=== PATIENT | female | born 1955 | race Caucasian/White ===

== ENCOUNTER 2020-12-05 11:12 | Inpatient (IN) ==
[2020-12-05] MEDS ORDERED: Ondansetron 4 MG/2 ML VIAL IVP ONE (11:23)
[2020-12-05] MEDS ORDERED: 0.9 % Sodium Chloride 1,000 ML IVC ONE ×2 (11:23→13:22)
[2020-12-05] MEDS ORDERED: Isovue-370 500 ML BOTTLE IVP ONE (11:24)
[2020-12-05] MEDS ORDERED: Morphine Sulfate 2 MG/ML SYRINGE IVP STA (11:35)
[2020-12-05] MEDS ORDERED: Aspirin 81 MG TAB.CHEW PO STA (11:44)
[2020-12-05 12:11] LABS: Hemoglobin 13.6 g/dL (11.5-15.4); Mean Corpuscular Volume 92.3 fL (83.0-100.0); Mean Platelet Volume 12.8 fL (9.4-12.4); Red Cell Distribution Width 13.2 % (11.5-14.5)
[2020-12-05 12:12] LABS: Basophils % 0.2 %; Hematocrit 43.3 % (35.3-44.9); Immature Granulocytes % 2.6 % (0-4); Immature Platelets 14.3 % (1.1-6.1); Lymphocytes # 0.7 K/mcL (0.6-4.6); Lymphocytes % 4.7 %; Mean Corpuscular HGB Conc 31.4 g/dL (31.6-35.5); Monocytes # 0.6 K/mcL (0.0-1.3); Monocytes % 4.2 %; Neutrophils # 12.7 K/mcL (1.6-8.9); Red Blood Count 4.69 M/mcL (3.82-4.97); Segmented Neutrophils % 88.3 %; White Blood Count 14.4 K/mcL (4.3-11.1)
[2020-12-05 12:16] LABS: Amorphous Sediment,Urine Few per hpf (None-Few); Bacteria,Urine Few per hpf (None-Few); Bilirubin,Urine Negative (Negative); Blood,Urine Small (Negative); Clarity,Urine Turbid (Clear); Color,Urine Light-Yellow (Yellow); Glucose,Urine (UA) >=1000 mg/dL (Normal); Ketones,Urine Trace mg/dL (Negative); Leukocyte Esterase,Urine Moderate (Negative); Mucus,Urine Few per lpf (None-Few); Nitrite,Urine Negative (Negative); PH,Urine 5.5 pH Units (5.0-8.0); Protein,Urine 30 mg/dL (Neg-Trace); Specific Gravity,Urine 1.026 (1.010-1.025); Squamous Epithelial Cell,Urine Few per hpf (None-Few); Urobilinogen,Urine Normal (Normal); WBC,Urine TNTC per hpf (0-3)
[2020-12-05] MEDS ORDERED: cefTRIAXone 1,000 MG in Water for inj. (sterile) 10 ML IVP ONE (12:31)
[2020-12-05 12:37] LABS: Platelet Count 96 K/mcL (140-400); Platelet Estimate Slight Decrease (Normal)
[2020-12-05 13:05] LABS: Albumin 3.2 g/dL (3.5-5.7); Bilirubin,Direct 0.7 mg/dL (0.0-0.2); Bilirubin,Indirect 0.5 mg/dL (0.0-1.0); Bilirubin,Total 1.2 mg/dL (0.3-1.0); Calcium 9.1 mg/dL (8.6-10.3); Globulin 3.2 g/dL (2.4-3.5); Potassium 3.8 mEq/L (3.5-5.1); Total Protein 6.4 g/dL (6.4-8.9); Troponin I 0.05 ng/mL (< 0.04)
[2020-12-05 13:25] LABS: VBG HCO3 25 mEq/L (21-27); VBG PCO2 44 mmHg (41-51); VBG PH 7.37 pH Units (7.32-7.42); VBG PO2 82 mmHg (25-50)
[2020-12-05] MEDS ORDERED: MetroNIDAZOLE 500 MG/100 ML 500 MG/100 ML BAG IVPB ONE (14:08)
[2020-12-05] MEDS ORDERED: Aspirin 81 MG TAB.CHEW PO ONE (14:15)
[2020-12-05] MEDS ORDERED: Aspirin 81 MG TAB.CHEW ONE (14:25)
[2020-12-05] MEDS ORDERED: Naloxone 0.4 MG/ML INJ IVP PRN (14:50)
[2020-12-05] MEDS ORDERED: *HR* Dextrose 50 % in Water (Vial) 50 ML VIAL IVP PRN (14:50)
[2020-12-05] MEDS ORDERED: Ondansetron 4 MG/2 ML VIAL IVP PRN (14:50)
[2020-12-05] MEDS ORDERED: D5% in 0.45% NACL w KCl 20 MEQ/1,000 ML MLS IVC PRN (14:50)
[2020-12-05] MEDS ORDERED: D5% in 0.45% NACL 1,000 ML IVC PRN (14:50)
[2020-12-05] MEDS ORDERED: Insulin Regular, Human 100 UNIT/ML IV PRN (14:50)
[2020-12-05] MEDS ORDERED: 0.9 % Sodium Chloride w KCl 20 MEQ/1,000 ML MLS IVC SCH (15:00)
[2020-12-05] MEDS: 0.45 % Sodium Chloride w/KCl 20 MEQ/1,000 ML MLS IVC SCH (17:02)
[2020-12-05] MEDS: *HR* Heparin 5,000 UNIT/ML VIAL SQ SCH (17:18)
[2020-12-05 23:08] LABS: Calcium 8.4 mg/dL (8.6-10.3); Potassium 3.6 mEq/L (3.5-5.1)
[2020-12-06 00:23] LABS: Acinetobacter baumannii by PCR Not Detected (Not Detect); Candida albicans by PCR Not Detected (Not Detect); Candida glabrata by PCR Not Detected (Not Detect); Candida krusei by PCR Not Detected (Not Detect); Candida parapsilosis by PCR Not Detected (Not Detect); Candida tropicalis by PCR Not Detected (Not Detect); Enterobacter cloacae Cmplx PCR Not Detected (Not Detect); Enterobacteriaceae by PCR Not Detected (Not Detect); Enterococcus by PCR Not Detected (Not Detect); Escherichia coli by PCR Not Detected (Not Detect); Klebsiella oxytoca by PCR Not Detected (Not Detect); Klebsiella pneumoniae by PCR DETECTED (Not Detect); Proteus by PCR Not Detected (Not Detect); Pseudomonas aeruginosa by PCR Not Detected (Not Detect); Serratia marcescens by PCR Not Detected (Not Detect); Staphylococcus aureus by PCR Not Detected (Not Detect); Staphylococcus by PCR Not Detected (Not Detect); Streptococcus agalactiae(B)PCR Not Detected (Not Detect); Streptococcus by PCR Not Detected (Not Detect); Streptococcus pneumoniae PCR Not Detected (Not Detect); Streptococcus pyogenes (A) PCR Not Detected (Not Detect)
[2020-12-06] MEDS ORDERED: Insulin DETEMIR 100 UNIT/ML X5UNITS SUBQ ONE (00:45)
[2020-12-06] MEDS ORDERED: 0.9 % Sodium Chloride 1,000 ML IVC ONE (00:51)
[2020-12-06] MEDS: 0.45 % Sodium Chloride w/KCl 20 MEQ/1,000 ML MLS IVC SCH (01:02)
[2020-12-06 04:32] LABS: Basophils % 0.2 %; Eosinophils % 0.1 %; Hematocrit 36.3 % (35.3-44.9); Immature Granulocytes % 0.5 % (0-4); Lymphocytes # 0.6 K/mcL (0.6-4.6); Mean Corpuscular HGB Conc 32.8 g/dL (31.6-35.5); Mean Corpuscular Hemoglobin 29.8 pg (28.0-33.3); Mean Platelet Volume 12.9 fL (9.4-12.4); Monocytes # 0.9 K/mcL (0.0-1.3); Monocytes % 6.8 %; Red Blood Count 3.99 M/mcL (3.82-4.97); Segmented Neutrophils % 87.4 %; White Blood Count 12.6 K/mcL (4.3-11.1)
[2020-12-06 04:34] LABS: Hemoglobin 11.9 g/dL (11.5-15.4); Platelet Count 84 K/mcL (140-400)
[2020-12-06 04:48] LABS: Calcium 8.1 mg/dL (8.6-10.3); Magnesium 1.8 mg/dL (1.6-2.6); Phosphorous 1.7 mg/dL (2.7-4.5); Potassium 3.9 mEq/L (3.5-5.1)
[2020-12-06 04:54] LABS: Platelet Estimate Decreased (Normal)
[2020-12-06 05:06] LABS: Estimated Average Glucose 407 mg/dl; Hemoglobin A1C 15.8 %
[2020-12-06] MEDS: *HR* Heparin 5,000 UNIT/ML VIAL SQ SCH (06:01)
[2020-12-06] MEDS ORDERED: Perflutren Lipid Microsphere 1.3 ML in 0.9 % Sodium Chloride 8.7 ML IVP PRN (06:13)
[2020-12-06] MEDS ORDERED: cefTRIAXone 1,000 MG in Water for inj. (sterile) 10 ML IVP SCH (09:00)
[2020-12-06] MEDS ORDERED: Lidocaine -MPF 2% 2 ML VIAL ONE (09:40)
[2020-12-06] MEDS ORDERED: Ondansetron 4 MG/2 ML VIAL ONE (09:40)
[2020-12-06] MEDS ORDERED: *HR* Propofol 200 MG/20 ML VIAL IVP ONE (09:41)
[2020-12-06] MEDS ORDERED: *HR* FentaNYL (PF) 100 MCG/2 ML VIAL ONE (09:41)
[2020-12-06] MEDS: ARIPiprazole 5 MG TABLET PO SCH (09:50)
[2020-12-06] MEDS ORDERED: *HR* Succinylcholine 200 MG/10 ML VIAL IVP ONE (09:55)
[2020-12-06] MEDS ORDERED: Isovue-300 50ML VIAL ONE (10:16)
[2020-12-06] MEDS ORDERED: Dextrose Gel 15 GM/37.5 ML TUBE PO PRN ×2 (11:48)
[2020-12-06] MEDS ORDERED: D5% in Water 1,000 ML IVC PRN (11:48)
[2020-12-06] MEDS ORDERED: *HR* Heparin 5,000 UNIT/ML VIAL IVP ONE (13:39)
[2020-12-06] MEDS ORDERED: *HR* Heparin 5,000 UNIT/ML VIAL IVP PRN (13:39)
[2020-12-06] MEDS ORDERED: Heparin 25,000UNIT/250ML 1/2NS 25,000 UNIT/250 ML IV.SOLN IVC SCH (13:45)
[2020-12-06] MEDS: Aspirin 81 MG TAB.CHEW PO SCH (14:35)
[2020-12-06] MEDS: cefTRIAXone 2,000 MG in Water for inj. (sterile) 20 ML IVP SCH (14:35)
[2020-12-06] MEDS: Insulin LISPRO 300 UNITS/3 ML VIAL SUBQ SCH (17:37)
[2020-12-06] MEDS: 0.9 % Sodium Chloride 1,000 ML IVC SCH (20:51)
[2020-12-06] MEDS: Insulin DETEMIR 100 UNIT/ML X5UNITS SUBQ SCH (20:51)
[2020-12-06] MEDS: Acetaminophen 325 MG TABLET PO PRN (20:53)
[2020-12-06] MEDS: *HR* Heparin 5,000 UNIT/ML VIAL IVP PRN (21:07)
[2020-12-07 03:12] LABS: Eosinophils % 0.3 %; Monocytes % 6.9 %; Red Cell Distribution Width 13.2 % (11.5-14.5)
[2020-12-07 03:14] LABS: Basophils % 0.1 %; Hematocrit 36.8 % (35.3-44.9); Hemoglobin 11.5 g/dL (11.5-15.4); Immature Granulocytes % 1.4 % (0-4); Immature Platelets 12.9 % (1.1-6.1); Lymphocytes # 0.7 K/mcL (0.6-4.6); Lymphocytes % 7.9 %; Mean Corpuscular HGB Conc 31.3 g/dL (31.6-35.5); Mean Corpuscular Hemoglobin 29.3 pg (28.0-33.3); Mean Corpuscular Volume 93.9 fL (83.0-100.0); Mean Platelet Volume 12.7 fL (9.4-12.4); Monocytes # 0.6 K/mcL (0.0-1.3); Red Blood Count 3.92 M/mcL (3.82-4.97); Segmented Neutrophils % 83.4 %; White Blood Count 9.3 K/mcL (4.3-11.1)
[2020-12-07 03:23] LABS: Neutrophils # 7.8 K/mcL (1.6-8.9); Platelet Count 90 K/mcL (140-400)
[2020-12-07 03:30] LABS: Calcium 7.9 mg/dL (8.6-10.3); Magnesium 2.1 mg/dL (1.6-2.6); Phosphorous 1.6 mg/dL (2.7-4.5); Potassium 3.6 mEq/L (3.5-5.1)
[2020-12-07 03:57] LABS: Platelet Estimate Decreased (Normal)
[2020-12-07] MEDS: *HR* Heparin 5,000 UNIT/ML VIAL IVP PRN (03:57)
[2020-12-07] MEDS: 0.9 % Sodium Chloride 1,000 ML IVC SCH ×2 (04:50→14:19)
[2020-12-07] MEDS: ARIPiprazole 5 MG TABLET PO SCH (08:24)
[2020-12-07] MEDS: Aspirin 81 MG TAB.CHEW PO SCH (08:24)
[2020-12-07] MEDS: Insulin LISPRO 300 UNITS/3 ML VIAL SUBQ SCH ×3 (08:25→17:41)
[2020-12-07] MEDS: Acetaminophen 325 MG TABLET PO PRN ×2 (08:25→21:15)
[2020-12-07] MEDS: cefTRIAXone 2,000 MG in Water for inj. (sterile) 20 ML IVP SCH (12:58)
[2020-12-07] MEDS: Insulin DETEMIR 100 UNIT/ML X5UNITS SUBQ SCH (21:15)
[2020-12-08 02:34] LABS: Basophils % 0.2 %; Eosinophils # 0.1 K/mcL (0.0-0.6); Eosinophils % 0.6 %; Hemoglobin 11.7 g/dL (11.5-15.4); Immature Granulocytes % 1.3 % (0-4); Lymphocytes % 11.6 %; Mean Corpuscular HGB Conc 32.5 g/dL (31.6-35.5); Mean Corpuscular Hemoglobin 29.8 pg (28.0-33.3); Mean Corpuscular Volume 91.8 fL (83.0-100.0); Mean Platelet Volume 12.1 fL (9.4-12.4); Monocytes # 0.6 K/mcL (0.0-1.3); Monocytes % 6.9 %; Neutrophils # 6.9 K/mcL (1.6-8.9); Platelet Count 115 K/mcL (140-400); Red Blood Count 3.92 M/mcL (3.82-4.97); Red Cell Distribution Width 13.3 % (11.5-14.5); Segmented Neutrophils % 79.4 %; White Blood Count 8.7 K/mcL (4.3-11.1)
[2020-12-08 02:58] LABS: Calcium 7.7 mg/dL (8.6-10.3); Potassium 3.3 mEq/L (3.5-5.1)
[2020-12-08] MEDS: Acetaminophen 325 MG TABLET PO PRN (07:38)
[2020-12-08] MEDS: Aspirin 81 MG TAB.CHEW PO SCH (07:38)
[2020-12-08] MEDS: ARIPiprazole 5 MG TABLET PO SCH (07:38)
[2020-12-08] MEDS: Insulin LISPRO 300 UNITS/3 ML VIAL SUBQ SCH ×3 (07:39→16:56)
[2020-12-08] MEDS: Piperacillin/Tazobactam 3.375 GM in 0.9 % Sodium Chloride Mini Bag 100 ML IVPB SCH ×2 (08:41→16:54)
[2020-12-08] MEDS: 0.9 % Sodium Chloride 1,000 ML IVC SCH ×2 (11:52)
[2020-12-08] MEDS: Insulin DETEMIR 100 UNIT/ML X5UNITS SUBQ SCH (20:40)
[2020-12-09] MEDS: Piperacillin/Tazobactam 3.375 GM in 0.9 % Sodium Chloride Mini Bag 100 ML IVPB SCH ×2 (00:19→08:23)
[2020-12-09 07:15] VITALS: BP 168/83
[2020-12-09] MEDS: Insulin LISPRO 300 UNITS/3 ML VIAL SUBQ SCH ×2 (07:48→11:54)
[2020-12-09] MEDS: ARIPiprazole 5 MG TABLET PO SCH (08:23)
[2020-12-09] MEDS: Aspirin 81 MG TAB.CHEW PO SCH (08:24)
== END 2020-12-09 12:32 | disposition home or self-care (01) | DRG 853 ==
LOC: EMEROOARM 11:12 → 2NENU 11:12 → SUATTDRO 14:58 → 2NENU 15:35
PROVIDERS: ADMIT Internal Medicine; ATTEND Internal Medicine